=== PATIENT | male | born 1990 | race Two or more races ===

== ENCOUNTER → 2020-09-12 | Outpatient (REF) | payer OTHER ==
[2020-09-12 22:55] LABS: CHLAMYDIA DNA AMPLIFICATION NEGATIVE (NEGATIVE); GC DNA AMPLIFICATION NEGATIVE (NEGATIVE)
== END ==
LOC: M LAB REF 21:08
PROVIDERS: ATTEND Physician Assistant Medical
DX: Z11.3 Encounter for screening for infections with a predominantly sexual mode of transmission (principal)

== ENCOUNTER → 2020-12-13 | Outpatient (REF) | payer OTHER | LOC: M LAB REF 21:36 | PROVIDERS: ATTEND Physician Assistant | DX: Z20.828 Contact with and (suspected) exposure to other viral communicable diseases (principal) ==

== ENCOUNTER 2021-06-30 13:58 | Emergency (ER) | payer OTHER ==
[~2021-06-30] VITALS: Ht 175.3 cm; Wt 97.7 kg
[2021-06-30] MEDS ORDERED: NS 1,000 ML IV ONE ×2 (14:35→16:05)
[2021-06-30] MEDS ORDERED: ACETAMINOPHEN 500 MG TAB PO ONE (14:35)
[2021-06-30 15:06] LABS: BASO % 0.4 % (0.0-1.0); EOS % 0.1 % (0.0-3.0); HEMOGLOBIN 14.9 g/dl (13.5-17.5); LYMPH # 0.7 10^3/uL (1.5-5.0); LYMPH % 9.5 % (24.0-44.0); MEAN CORPUSCULAR HEMOGLOBIN 28.3 pg (27.0-33.0); MEAN CORPUSCULAR HGB CONC 32.4 g/dl (32.0-36.5); MEAN CORPUSCULAR VOLUME 87.5 fl (80.0-96.0); MONO # 0.8 10^3/uL (0.0-0.8); MONO % 11.9 % (2.0-8.0); NEUTROPHILS # 5.5 10^3/uL (1.5-8.5); NEUTROPHILS % 77.8 % (36.0-66.0); PLATELET COUNT, AUTOMATED 242 10^3/uL (150-450); RED BLOOD COUNT 5.26 10^6/uL (4.30-6.10)
[2021-06-30 15:36] LABS: MONO REFLEX EBV COMP NEGATIVE (NEGATIVE)
[2021-06-30 15:39] LABS: ALBUMIN 4.1 GM/DL (3.2-5.2); ALT/SGPT 30 U/L (12-78); BILIRUBIN,DIRECT 0.1 MG/DL (0.0-0.2); LIPASE 68 U/L (73-393); TOTAL PROTEIN 7.8 GM/DL (6.4-8.2)
[2021-06-30] MEDS ORDERED: IBUPROFEN 800 MG TAB PO ONE (16:00)
[2021-06-30] MEDS ORDERED: ISOVUE-370 76% 100ML VIAL As Ordered ONE (16:08)
--- NOTE | 2021-06-30 16:24 | REP ---
INDICATION: fever, bodyaches, cough. COMPARISON: None. TECHNIQUE: Single portable AP view of the chest was performed. FINDINGS: There is poor ventilation, there are carotid lung markings in each lung base. There is no evidence of acute infiltrate or pulmonary edema. The heart appears to be magnified by technique. The mediastinal silhouette is unremarkable. The visualized osseous structures are intact. IMPRESSION: Poor inspiration. No definite acute infiltrate. <Electronically signed by Stephen Singh > 06/30/21 [id number]
--- NOTE | 2021-06-30 16:37 | REPVR ---
PROCEDURE INFORMATION: Exam: CT Head Without Contrast Exam date and time: 06/30/2021 4:04 PM Age: 30 years old Clinical indication: Other: Severe frontal headache 103 tmax fever TECHNIQUE: Imaging protocol: Computed tomography of the head without contrast. Radiation optimization: All CT scans at this facility use at least one of these dose optimization techniques: automated exposure control; mA and/or kV adjustment per patient size (includes targeted exams where dose is matched to clinical indication); or iterative reconstruction. COMPARISON: No relevant prior studies available. FINDINGS: Brain: There is no acute intracranial hemorrhage or abnormal extra-axial fluid collection identified. There is no intracranial mass effect or shift of midline structures. The evans-white differentiation is preserved throughout. There is hyperdensity of the falx, without thickening, which is felt to be normal variant. Cerebral ventricles: There is no sulcal or ventricular effacement. The basilar cisterns are open. No hydrocephalus. Paranasal sinuses: The visualized sinuses are unremarkable. Mastoid air cells: There is no mastoid effusion detected. Bones/joints: No calvarial fracture or destructive osseous lesions are seen. IMPRESSION: No acute intracranial pathology identified by CT. Electronically signed by: Ella Anton On 06/30/2021 16:37:12 PM
--- NOTE | 2021-06-30 16:37 | REP ---
INDICATION: diffuse abd pain, diarrhea, fever, low back pain COMPARISON: None. TECHNIQUE: CT Scan of the abdomen and pelvis was performed with intravenous administration of 100 cc of Isovue 370, without oral contrast. Sagittal and coronal reconstruction images are performed. FINDINGS: Lung bases: Unremarkable. Liver: Normal Gallbladder: Unremarkable. Spleen: Normal. Adrenals: Normal. Pancreas: Normal. Kidneys: Normal. Small and large bowel: Unremarkable. Free fluid: None. Abdominal aorta: No aneurysm or dissection. Adenopathy: None. Appendix: Not inflamed. Osseous structures: Unremarkable. Pelvis: No mass. IMPRESSION: Negative CT abdomen and pelvis. <Electronically signed by Stephen Singh > 06/30/21 [id number]
[2021-06-30 17:31] LABS: CPK CREATINE PHOSPHOKINASE 308 U/L (39-308)
[2021-06-30] MEDS ORDERED: ONDA4TAB6 PO (17:50)
[2021-06-30 18:17] VITALS: BP 112/76
== END 2021-06-30 18:19 | disposition home or self-care (01) ==
LOC: M ED 13:58 → EDBD 13:58 → M ED 18:19
DX: B34.9 Viral infection, unspecified (principal); R50.9 Fever, unspecified
CPT/HCPCS: 70450; 71045; 74177; 80047; 80076; 81001; 82550; 83605; 83690; 85025; 86308; 86664; 86665; 87040; 87798; 87880; 96360; 96361; 99284; Q9967